=== PATIENT | female | born 1975 | race Caucasian/White ===

== ENCOUNTER 2016-11-05 10:49 | Emergency (ER) | payer SELFPAY ==
[2016-11-05 11:32] VITALS: BP 122/48
--- NOTE | 2016-11-05 11:41 | Emergency Department Report ---
Entered by JAYASHREE OLMSTEAD, acting as scribe for MACHO FROST NP. Stated Complaint: R/O LITHIUM TOXICITY VS SUBSTANCE INDUSE MOOD D/O - HPI History of Present Illness: 41 y/o female, sent to ED by her psychiatrist for possible substance abuse. Associated anxiety and lacerations to the left forearm - ROS Review of Systems: +anxiety - Exam Physical Exam: GENERAL: The patient is alert and oriented x3. Appears drowsy MSE screening note: Focused history and physical exam performed. Due to findings the following was ordered: ED Disposition for MSE Condition: Stable This documentation as recorded by the scribe,JAYASHREE OLMSTEAD,accurately reflects the service I personally performed and the decisions made by ,MACHO FROST, RESULTS ENGINEER.
[2016-11-05 12:11] LABS: Basophils % (Auto) 0.6 % (0.0-1.8); Eosinophils % (Auto) 3.5 % (0.0-4.3); Hematocrit 40.9 % (30.3-42.9); Hemoglobin 13.3 gm/dl (10.1-14.3); Mean Corpuscular HGB Conc 33 % (30-34); Mean Corpuscular Hemoglobin 31 pg (28-32); Mean Corpuscular Volume 94 fl (79-97); Platelet Count 403 K/mm3 (140-440); Red Blood Count 4.35 M/mm3 (3.65-5.03); Red Cell Distribution Width 14.7 % (13.2-15.2); White Blood Count 10.6 K/mm3 (4.5-11.0)
[2016-11-05 12:52] LABS: Urine Drugs of Abuse Note Disclamer
[2016-11-05 13:08] LABS: Bacteria,Urine 1+ /HPF (Negative); Bilirubin,Urine NEG (Negative); Blood,Urine NEG (Negative); Ketones,Urine TR mg/dL (Negative); Leukocyte Esterase,Urine NEG (Negative); Mucus,Urine 2+ /HPF; Nitrite,Urine NEG (Negative)
[2016-11-05 13:27] LABS: Alanine Aminotransferase 8 units/L (7-56); Albumin 4.3 g/dL (3.9-5); Albumin/Globulin Ratio 1.3 %; Alkaline Phosphatase 61 units/L (35-129); Anion Gap 19 mmol/L; BUN/Creatinine Ratio 14.28; Bilirubin,Total < 0.20 mg/dL (0.1-1.2); Blood Urea Nitrogen 10 mg/dL (7-17); Calcium 9.5 mg/dL (8.4-10.2); Carbon Dioxide 23 mmol/L (22-30); Glucose 101 mg/dL (65-100); Potassium 4.7 mmol/L (3.6-5.0); Sodium 139 mmol/L (137-145); Total Protein 7.6 g/dL (6.3-8.2)
[2016-11-05 14:12] LABS: Lithium 0.8 mmol/L (0.0-1.2); Salicylate < 0.3 mg/dL (2.8-20.0)
== END 2016-11-05 12:00 | disposition left against medical advice (07) ==
LOC: ED 10:49
DX: S51.812A Laceration without foreign body of left forearm, initial encounter (principal); F41.9 Anxiety disorder, unspecified; X58.XXXA Exposure to other specified factors, initial encounter; Y93.9 Activity, unspecified; Y99.9 Unspecified external cause status; Y92.9 Unspecified place or not applicable; Z53.21 Procedure and treatment not carried out due to patient leaving prior to being seen by health care provider
CPT/HCPCS: 36415; 80053; 80178; 80307; 81001; 84703; 85025; G0480; 80320